=== PATIENT | female | born 1995 | race Caucasian/White ===

== ENCOUNTER → 2023-05-24 | Outpatient (CLI) | payer BC, SELFPAY ==
[2023-05-24 10:57] LABS: hCG Titer Quant., Serum 422 mIU/mL (1-3)
== END | disposition home or self-care (01) ==
PROVIDERS: Obstetrics & Gynecology; PCP Internal Medicine; Visit Provider Advanced Practice Midwife
DX: N91.2 Amenorrhea, unspecified (principal)
CPT/HCPCS: 36415; 84702

== ENCOUNTER → 2023-05-31 | Outpatient (CLI) | payer BC, SELFPAY ==
[2023-05-31 11:43] LABS: hCG Titer Quant., Serum 7393 mIU/mL (1-3)
== END | disposition home or self-care (01) ==
LOC: PAVLAB 09:40
PROVIDERS: PCP Internal Medicine; Referring Provider Obstetrics & Gynecology; Visit Provider Obstetrics & Gynecology
DX: Z34.90 Encounter for supervision of normal pregnancy, unspecified, unspecified trimester (principal); Z3A.00 Weeks of gestation of pregnancy not specified
CPT/HCPCS: 36415; 84702

== ENCOUNTER → 2023-06-24 | Outpatient (CLI) | payer BC, SELFPAY ==
[2023-06-24 13:04] LABS: Absolute Lymphocyte Count 1.58 X10^3/uL (0.83-4.51); Absolute Neutrophil Count 5.5 X10^3/uL (2.0-7.7); Basophil# 0.02 X10^3/uL; Basophil% 0.3 % (0-1); Eosinophil# 0.07 X10^3/uL; Eosinophils% 0.9 % (0-5); Hematocrit 38.4 % (37-47); Hemoglobin 12.7 g/dL (12.0-15.0); Lymphocyte # 1.58 X10^3/ul (0.83-4.51); Lymphocyte % 20.4 % (19-41); Mean Corp Hgb Conc 33.1 g/dL (32-36); Mean Corpuscular Hgb 31.8 pg (27.0-32.0); Monocyte# 0.51 X10^3/uL; Monocyte% 6.6 % (0-10); NRBC Flagged by Analyzer 0 % (0-5); Neutrophil # 5.52 X10^3/uL (2.7-7.7); Neutrophil % 71.4 % (47-70); Platelet Count 249 K/mm3 (150-450); RBC Distribution Width CV 11.7 % (11.6-14.6); RBC Distribution Width SD 41.7 fl (35.1-43.9); White Blood Count 7.7 K/mm3 (4.4-11.0)
[2023-06-24 14:48] LABS: HIV - WCH Non-Reactive (Nonreactive); Hepatitis B Surface Antigen Non-Reactive (Nonreactive); Hepatitis C Antibody Non-Reactive (Nonreactive); Rubella IgG Reactive (Nonreactive); Syphilis Antibodies Non-reactive
[2023-06-29 04:07] LABS: Chlamydia By Nucleic Acid AMP Negative (Negative); Gonococcus By Nucleic Acid AMP Negative (Negative)
[2023-06-29 17:44] LABS: HPV Reflexed? NOT INDICATED
== END | disposition home or self-care (01) ==
PROVIDERS: PCP Nurse Practitioner Family; Referring Provider Advanced Practice Midwife; Visit Provider Advanced Practice Midwife
DX: Z34.90 Encounter for supervision of normal pregnancy, unspecified, unspecified trimester (principal); Z3A.00 Weeks of gestation of pregnancy not specified
CPT/HCPCS: 36415; 85025; 86703; 86762; 86780; 86803; 86850; 86900; 86901; 87086; 87340; 87491; 87591; 88175; G0145

== ENCOUNTER → 2023-10-22 | Outpatient (CLI) | payer BC, SELFPAY ==
[2023-10-22 15:56] LABS: Absolute Lymphocyte Count 1.64 X10^3/uL (0.83-4.51); Absolute Neutrophil Count 6.8 X10^3/uL (2.0-7.7); Basophil# 0.05 X10^3/uL; Basophil% 0.5 % (0-1); Eosinophils% 2.1 % (0-5); Hematocrit 36.3 % (37-47); Hemoglobin 11.7 g/dL (12.0-15.0); Lymphocyte # 1.64 X10^3/ul (0.83-4.51); Lymphocyte % 17.5 % (19-41); Mean Corp Hgb Conc 32.2 g/dL (32-36); Mean Corpuscular Hgb 31.5 pg (27.0-32.0); Mean Corpuscular Volume 97.6 fL (81-99); Mean Platelet Vol. 10.7 fl (6.2-12.0); Monocyte# 0.63 X10^3/uL; Monocyte% 6.7 % (0-10); NRBC Flagged by Analyzer 0 % (0-5); Neutrophil # 6.77 X10^3/uL (2.7-7.7); Neutrophil % 72.2 % (47-70); Platelet Count 240 K/mm3 (150-450); RBC Distribution Width CV 12.5 % (11.6-14.6); RBC Distribution Width SD 45.1 fl (35.1-43.9); Red Blood Count 3.72 M/mm3 (4.2-5.4); White Blood Count 9.4 K/mm3 (4.4-11.0)
[2023-10-22 16:13] LABS: Glucose Challenge Gest 1H 50g 94 mg/dL (70-140)
[2023-10-22 16:42] LABS: HIV - WCH Non-Reactive (Nonreactive); Syphilis Antibodies Non-reactive
== END | disposition home or self-care (01) ==
LOC: LAB 14:18
PROVIDERS: PCP Nurse Practitioner Family; Referring Provider Nurse Practitioner Women's Health; Visit Provider Nurse Practitioner Women's Health
DX: Z13.1 Encounter for screening for diabetes mellitus (principal); Z3A.21 21 weeks gestation of pregnancy
CPT/HCPCS: 36415; 82950; 85025; 86703; 86780

== ENCOUNTER → 2023-12-07 | Outpatient (CLI) | payer BC, SELFPAY ==
--- NOTE | 2023-12-07 09:36 | US_ITS ---
HISTORY: growth. TECHNIQUE: Transabdominal pelvic ultrasound was performed. 56 images. COMPARISON: None. FINDINGS: INTRAUTERINE GESTATION(s): Single. PRESENTATION: Cephalic. HEART MOTION: 143 bpm. PLACENTA: Posterior, grade one. No placenta previa. CERVIX: Not well-visualized. AMNIOTIC FLUID INDEX (SAMSON): 12.3 cm. Maximum vertical pocket 3.6 cm. biometry- BIPARIETAL DIAMETER: 8.2 cm, corresponding to 33 weeks 0 days. HEAD CIRCUMFERENCE: 29.6 cm, corresponding to 32 weeks 5 days. ABDOMINAL CIRCUMFERENCE: 26.6 cm, corresponding to 30 weeks 5 days. FEMUR LENGTH: 6.1 cm, corresponding to 31 weeks 6 days. ESTIMATED GESTATIONAL AGE: 32 weeks 0 days. ESTIMATED DUE DATE (NOAM): 02/01/2024. ESTIMATED WEIGHT: 1783 g corresponding to 11th percentile. US/OB Limited With Biometrics IMPRESSION: Single living intrauterine with an estimated gestational age of 32 weeks 0 days. biometry as above. Electronically Signed: Monika Otoole MD at 8:39 EDT ,
== END | disposition home or self-care (01) ==
LOC: US 09:35
PROVIDERS: PCP Nurse Practitioner Family; Referring Provider Obstetrics & Gynecology; Visit Provider Obstetrics & Gynecology
DX: O26.843 Uterine size-date discrepancy, third trimester (principal)
CPT/HCPCS: 76816

== ENCOUNTER → 2023-12-10 | Outpatient (CLI) | payer BC, SELFPAY ==
--- NOTE | 2023-12-10 09:31 | US_ITS ---
INDICATION: IUGR, well EXAMINATION: Ultrasound US Biophysical Profile W/O Nonst TECHNIQUE: Transabdominal pelvic ultrasound was performed. COMPARISON: Prior study dated: 12/07/2023 LMP: Unknown. Beta-hCG: Unknown. Provided EGA: 33 weeks 2 days FINDINGS: INTRAUTERINE GESTATION(s): Single. HEART MOTION is 150 bpm. AMNIOTIC FLUID INDEX (SAMSON): 12.4 cm BIOPHYSICAL PROFILE (BPP): 12/08 -- Breathin/2. -- Movement: 2/2. -- Tone: 2/2. --SAMSON: 2/2. PRESENTATION: Cephalic PLACENTA: Posterior. There is no placenta previa or abruption. CERVIX: The cervix is not visualized. FREE FLUID: None. US/Biophysical Prof W/O Non Stres IMPRESSION: Single live intrauterine with biophysical profile 12/08. No acute abnormality. Electronically Signed: Clovis Perez MD at 11:42 EDT ,
== END | disposition home or self-care (01) ==
LOC: US 09:30
PROVIDERS: PCP Nurse Practitioner Family; Referring Provider Obstetrics & Gynecology; Visit Provider Obstetrics & Gynecology
DX: O36.5990 Maternal care for other known or suspected poor fetal growth, unspecified trimester, not applicable or unspecified (principal); O26.843 Uterine size-date discrepancy, third trimester
CPT/HCPCS: 76819

== ENCOUNTER → 2023-12-29 | Outpatient (CLI) | payer BC, SELFPAY | END | disposition home or self-care (01) | LOC: LABSPEC 15:17 | PROVIDERS: PCP Nurse Practitioner Family; Referring Provider Obstetrics & Gynecology; Visit Provider Obstetrics & Gynecology | DX: Z34.03 Encounter for supervision of normal first pregnancy, third trimester (principal) | CPT/HCPCS: 87077; 87081; 87186 ==

== ENCOUNTER → 2024-01-26 | Outpatient (CLI) | payer BC, SELFPAY ==
[2024-01-26 10:31] LABS: ROM Internal Control Test YES-OK TO RESULT pt. (Internal QC); ROM Patient Test Negative (Negative)
[2024-01-26 10:32] LABS: Record Kit Lot#, ROM+ K1660
== END | disposition home or self-care (01) ==
PROVIDERS: PCP Nurse Practitioner Family; Referring Provider Obstetrics & Gynecology; Visit Provider Obstetrics & Gynecology
DX: O26.899 Other specified pregnancy related conditions, unspecified trimester (principal); N89.8 Other specified noninflammatory disorders of vagina; Z3A.00 Weeks of gestation of pregnancy not specified; O99.891 Other specified diseases and conditions complicating pregnancy
CPT/HCPCS: 84112

== ENCOUNTER 2024-01-30 20:40 | Outpatient (CLI) | payer BC, SELFPAY ==
[2024-01-30 20:47] VITALS: BMI 31.0
[2024-01-30 20:51] VITALS: BP 128/74; PULSE 85; RESP 16; TEMP 36.4; O2SAT 97
--- NOTE | 2024-02-18 07:49 | OB.TRI.NOTE ---
HPI - General General Date of Service: 01/30/24 HPI Narrative LUCIA BOWDEN, is a 28 F who presents at 40.4 for rule out labor. having irregular contractions that are uncomfortable. denies lof/vb. has active fetus. [facility] Medical History (Updated 02/18/24 @ 07:53 by Tiffanie Mccracken CNM) Supervision of normal first Positive GBS test SAMSON (amniotic fluid index) borderline low Active labor at term SROM (spontaneous rupture of membranes) Asthma Home Medications ?Medication ?Instructions ?Recorded ?Last Taken ?Type azelaic acid 15 % topical gel 1 applic topical ONCE 06/18/23 01/30/24 History clindamycin phosphate 1 % topical 1 applic topical DAILY 06/18/23 01/30/24 History gel, once daily multivit-min no.71-iron fum 28 1 cap PO 06/18/23 01/30/24 History mg-folate no.1 1 mg-dha 300 mg capsule (PNV-[place]) Allergy/AdvReac Type Severity Reaction Status Date / Time No Known Allergies Allergy Verified 01/31/24 03:37 Family History Grandmother Cancer, Onset Age: 77 Paternal- skin cancer Grandfather Heart disease paternal Diabetes Paternal Type 2 Grandfather Heart disease Maternal Mother Hypertension High cholesterol Asthma Father Hypertension High cholesterol Surgical History [place] teeth extracted Social History adopted: No household members: spouse current occupational status: employed current occupation: [employer] current occupational exposures/hazards: No pets and animals: Yes (Avoid litterbox) pets and animals: cat(s) and dog(s) history of recent travel: Yes ([place]) out of state: Yes out of country: No sexually active: Yes Smoking Status: Never smoker alcohol intake: current alcohol intake frequency: a few times a week details: not while substance use type: does not use well-balanced diet: daily or most days caffeine: No eating out: 1-3 times/week during the past year weight has: remained stable what type of physical activity do you participate in: other details: cardio frequency: 3-4 times per week duration: 30-45 minutes/day guillermo/[employer] seatbelt use: always do you feel safe at home: Yes additional social history: [employer]- [employer] History 1 Elective abortions Hx Para 0 Spontaneous abortions Hx # Term Pregnancies Ectopic pregnancies Hx # Pregnancies Multiple births # of living children 1 Past Pregnancies Del. Date Name GA/Weeks Outcome Route Bth Weight Infant Gen Labor Lgth Anesthesia Del Locatn Provider FOB 01/31/24 Marybeth 40 live - full term Female epidural [facility] [place] Delivery Date: 01/31/24 Last Updated by: Jaz Hutchins, RN See problem list for complications, and KW IAL 40.5 girl NST FHR Rate Baby A Baseline: 135 Variability:: Moderate Accelerations:: 15 x 15 Decelerations:: None NST Reactive:: Yes FHR Category:: Category I Assessment & Plan (1) False labor: COMMENT: no change in cervical exam. plan d/c home for spontaneous labor. PLAN: Patient presents for triage evaluation secondary to rule out labor FHT: Moderate variability reactive no decelerations category I tracing [place]: irregular Contractions Assessment and plan: Reactive NST, reassuring maternal and status patient discharged to home to follow-up as needed. See problem list details for additional plan information. Charges/Coding Procedures Urinary/Genital [id number]: 63765-69 non-stress test Interp Multi Select Codes Urinary/Genital Urinary/Genital CPT Codes: 19518-10 non-stress test Interp
== END 2024-01-30 23:32 | disposition home or self-care (01) ==
LOC: WPOUT 20:42 → WP 20:46
PROVIDERS: PCP Nurse Practitioner Family; Referring Provider Registered Nurse; Visit Provider Registered Nurse
DX: O47.1 False labor at or after 37 completed weeks of gestation (principal); Z3A.40 40 weeks gestation of pregnancy; J45.909 Unspecified asthma, uncomplicated; O99.513 Diseases of the respiratory system complicating pregnancy, third trimester
CPT/HCPCS: 59050; 99221; G0378

== ENCOUNTER 2024-01-31 04:00 | Inpatient (IN) | payer BC, SELFPAY ==
[2024-01-31] VITALS (72 sets, daily range): BP systolic 106–172; BP diastolic 55–80; PULSE 68–101; RESP 16–20; TEMP 36.4–37.7; O2SAT 96–100; BMI 31.0
[2024-01-31 03:58] LABS: ROM Internal Control Test YES-OK TO RESULT pt. (Internal QC)
[2024-01-31 03:59] LABS: ROM Patient Test POSITIVE (Negative); Record Kit Lot#, ROM+ K1660
[2024-01-31] MEDS: Penicillin G Pot 5,000,000 UNITS in 0.9% Normal Saline (100mL MB+) 100 ML 150 UNITS IV (04:28)
[2024-01-31] MEDS: Lactated Ringers 1,000 ML 100 ML IV (04:34)
[2024-01-31 04:37] LABS: Absolute Lymphocyte Count 1.37 X10^3/uL (0.83-4.51); Absolute Neutrophil Count 10.9 X10^3/uL (2.0-7.7); Basophil# 0.05 X10^3/uL; Basophil% 0.4 % (0-1); Eosinophil# 0.05 X10^3/uL; Eosinophils% 0.4 % (0-5); Hemoglobin 11.9 g/dL (12.0-15.0); Lymphocyte # 1.37 X10^3/ul (0.83-4.51); Lymphocyte % 10.4 % (19-41); Mean Corp Hgb Conc 32.2 g/dL (32-36); Mean Corpuscular Hgb 29.6 pg (27.0-32.0); Mean Platelet Vol. 10.6 fl (6.2-12.0); Monocyte# 0.73 X10^3/uL; Monocyte% 5.5 % (0-10); NRBC Flagged by Analyzer 0 % (0-5); Neutrophil # 10.88 X10^3/uL (2.7-7.7); Neutrophil % 82.6 % (47-70); Platelet Count 164 K/mm3 (150-450); RBC Distribution Width CV 12.5 % (11.6-14.6); RBC Distribution Width SD 41.9 fl (35.1-43.9); Red Blood Count 4.02 M/mm3 (4.2-5.4); White Blood Count 13.2 K/mm3 (4.4-11.0)
[2024-01-31 05:13] LABS: Syphilis Antibodies Non-reactive
[2024-01-31] MEDS: Lactated Ringers 1,000 ML 999 ML IV (06:57)
--- NOTE | 2024-01-31 08:36 | HP.PCM.OB_ITS ---
HPI - General General Date of Admission: 01/31/24 Date of Service: 01/31/24 HPI Narrative LUCIA BOWDEN, is a 28 F 40.5 weeks who presents to unit in active labor and SROM. Admission planned. Maternal Data Information NOAM Calculator Estimated Delivery Date Method Current WG Current Estimate 01/26/24 LMP (Certain) 40w 5d Final NOAM: 01/26/24 Final NOAM Source: US >20 weeks Gestational age: 40.5 PFSH PFSH Medical History Asthma Home Medications ?Medication ?Instructions ?Recorded ?Last Taken ?Type azelaic acid 15 % topical gel 1 applic topical ONCE 06/18/23 01/30/24 History clindamycin phosphate 1 % topical 1 applic topical DAILY 06/18/23 01/30/24 History gel, once daily multivit-min no.71-iron fum 28 1 cap PO 06/18/23 01/30/24 History mg-folate no.1 1 mg-dha 300 mg capsule (PNV-Dahlgren) Allergy/AdvReac Type Severity Reaction Status Date / Time No Known Allergies Allergy Verified 01/31/24 03:37 Family History Grandmother Cancer, Onset Age: 77 Paternal- skin cancer Grandfather Heart disease paternal Diabetes Paternal Type 2 Grandfather Heart disease Maternal Mother Hypertension High cholesterol Asthma Father Hypertension High cholesterol Surgical History [place] teeth extracted Social History adopted: No household members: spouse current occupational status: employed current occupation: [employer] [place] [employer] current occupational exposures/hazards: No pets and animals: Yes (Avoid litterbox) pets and animals: cat(s) and dog(s) history of recent travel: Yes ([place]) out of state: Yes out of country: No sexually active: Yes Smoking Status: Never smoker alcohol intake: current alcohol intake frequency: a few times a week details: not while substance use type: does not use well-balanced diet: daily or most days caffeine: No eating out: 1-3 times/week during the past year weight has: remained stable what type of physical activity do you participate in: other details: cardio frequency: 3-4 times per week duration: 30-45 minutes/day guillermo/uatsdin: [employer] seatbelt use: always do you feel safe at home: Yes additional social history: Osvaldo- [employer] In[employer] History 1 Elective abortions Hx Para 0 Spontaneous abortions Hx # Term Pregnancies Ectopic pregnancies Hx # Pregnancies Multiple births # of living children Visit Details Expected Delivery Route/Plan Labor Preferences- CB/BF classes: encouraged labor support person: Osvaldo labor intervention preferences: [] pain management options preferred: limited intervention if possible. Ok w/epidural cut cord/dad catch: maybe : yes PP control planned: discussed discussed possible routes of delivery and associated risks: [] special requests: [] Plans Covid status: [] Flu vaccine: [] Tdap vaccine: given Rhogam: NA LARC form signed: yes movement and labor precautions reviewed. Problem list reviewed and updated with the most current plan of care details and appropriate orders placed. Relevant counseling for the gestational age provided. Continue routine care and follow up unless otherwise noted in visit notes/problem list details OB Flowsheet Initial Weight: Not Recorded Date -?-?-?-?-?-?-?-?-?-?-?-?- EGA Weight BP Urine Prot -?-?-?-?-?-?-?-?-?-?-?-?- Glucose FHR FuHt Pres Dilation -?-?-?-?-?-?-?-?-?-?-?-?- Effaced St Visit Note 06/24/23 -?-?-?-?-?-?-?-?-?-?-?-?- 9w 1d 147 lb 118/78 -?-?-?-?-?-?-?-?-?-?-?-?- 175 -?-?-?-?-?-?--?-?-?-?-?-?- kw- CRL cons wit h dates. Accepts NIPT and carrier 07/21/23 -?-?-?-?-?-?-?-?-?-?-?-?- 13w 0d Negative -?-?-?-?-?-?-?-?-?-?-?-?- Negative 165 -?-?-?-?-?-?-?-?-?-?-?-?- JV- carrier for SMA. pt's partner to get tested today. 08/20/23 -?-?-?-?-?-?-?-?-?-?-?-?- 17w 2d 150 lb 116/62 Negative -?-?-?-?-?-?-?-?-?-?-?-?- Negative 154 -?-?-?-?-?-?-?-?-?-?-?-?- LC- no vb/crampi ng. declines afp. has anatomy schedule 09/20/23 -?-?-?-?-?-?-?-?-?-?-?-?- 21w 5d 158 lb 4 oz 116/70 Nega tive -?-?-?-?-?-?-?-?-?-?-?-?- Negative 155 -?-?-?-?-?-?-?-?-?-?-?-?- -No VB, LOF. G ood FM. Denies concerns 10/22/23 -?-?-?-?-?-?-?-?-?-?-?-?- 26w 2d 163 lb 6 oz 111/63 Nega tive -?-?-?-?-?-?-?-?-?-?-?-?- Negative 147 -?-?-?-?-?-?-?-?-?-?-?-?- JV- sma for part ner was negative. JV- sma for partner was nega tive. did her 3rd trimester labs today and they are pending. no complaints. was using dog tick and flea ointment on her dog and was worried about this. ecouraged to use gloves. 12/02/23 -?-?-?-?-?-?-?-?-?-?-?-?- 32w 1d 170 lb 2 oz 114/65 Nega tive -?-?--?-?-?-?-?-?-?-?-?-?- Negative 145 29 -?-?-?-?-?-?-?-?-?-?-?-?- SM- no vb lof go od fm no reuglar ctx.growth US ordered. 12/17/23 -?-?-?-?-?-?-?-?-?-?-?-?- 34w 2d 172 lb 102/67 Negative -?-?-?-?-?-?-?-?-?-?-?-?- Negative 140 32 -?-?-?-?-?-?-?-?-?-?-?-?- SM- no vb lof go od fm no regular ctx SM- no vb lof good fm no reg ular ctx- had MFM scan and was 34 %ile overall and healthy, repeat scan with mfm in 4 weeks scheduled 12/29/23 -?-?-?-?-?-?-?-?-?-?-?-?- 36w 0d 175 lb 4 oz 114/69 Nega tive -?-?-?-?-?-?-?-?-?-?-?-?- Negative 153 34 Cephalic 1 -?-?-?-?-?-?-?-?-?-?-?-?- 50 -3 -Kashif Oleary OF. Good FM. GBS done. Growth US 01/0301/07/24 -?-?-?-?-?-?-?-?-?-?-?-?- 37w 2d 177 lb 4 oz 111/67 Nega tive -?-?-?-?-?-?-?-?-?-?-?-?- Negative 145 35.5 Cephalic 0 .5 -?-?-?-?-?-?-?-?-?-?-?-?- 50 -3 LC- no vb/ ctx/lof. good fm. gbs positive, reviewed. MFM u/s showing 24% with adequate samson 01/14/24 -?-?-?-?-?-?-?-?-?-?-?-?- 38w 2d 179 lb 121/80 Negative -?-?-?-?-?-?-?-?-?-?-?-?- Negative 155 35 Cephalic -?-?-?-?-?-?-?-?-?-?-?-?- SM- no vb lof go od fm no regualr ctx SM- no vb lof good fm no reg ualr ctx bedside SAMSON 9.8 cm 01/21/24 -?-?-?-?-?-?-?-?-?-?-?-?- 39w 2d 178 lb 2 oz 120/72 Nega tive -?-?-?-?-?-?-?-?-?-?-?-?- Negative 138 37 Cephalic -?-?-?-?-?-?-?-?-?-?-?-?- JV- no lof, vagi nal bleeding, or dec fm. declines pelvic exam SAMSON is 14 today 01/26/24 -?-?-?-?-?-?-?-?-?-?-?-?- 40w 0d 183 lb 123/80 Negative -?-?-?-?-?-?-?-?-?-?-?-?- Negative 140 36 Cephalic 1 .5 -?-?-?-?-?-?-?-?-?-?-?-?- 50 -2 SM- no vb lof good fm no regular ctx discussed rom plus, repeat fluid level wednesday, bedside samson 6.8 today NST FHR Rate Baby A Baseline: 140 Variability:: Moderate Accelerations:: 15 x 15 Decelerations:: None NST Reactive:: Yes FHR Category:: Category I Uterine Activity:: 2-3 ROS Constitutional Constitutional: Denies change in weight, fatigue, fever(s), headache(s), poor appetite or weakness Eyes Eyes: Denies blurry vision, change in vision, floaters, seeing flashes or spots in vision ENT HEENT: Denies dizziness, headache(s), loss taste/smell or sore throat Cardiovascular Cardiovascular: Denies chest pain, dizziness, dyspnea, irregular heart rhythm, lightheadedness, palpitations or rapid heart rate Respiratory/Chest Respiratory/Chest: Denies change in mental status, chest tightness, cough, dyspnea or breast pain Gastrointestinal Gastrointestinal: Denies anorexia, chewing difficulty, constipation, diarrhea or weight changes Genitourinary Genitourinary: Denies difficulty urinating, dysuria, flank pain, genital pain, urinary frequency or urinary urgency Musculoskeletal Musculoskeletal: Denies back pain, difficulty walking, extremity pain, joint pain, muscle cramps or muscle weakness Integumentary Integumentary: Denies lesions or unusual bruising Neurologic Neurologic: Denies abnormal movements, abnormal speech, dizziness, numbness, seizure-like activity, syncope or weakness Psychiatric Psychiatric: Denies behavioral changes, change in appetite, confusion, depression, homicidal ideation, suicidal ideation or suicidal thoughts Endocrine Endocrinology: Denies excessive sweating, polydipsia or polyuria Hematologic/Lymphatic Hematologic/Lymphatic: Denies anemia Allergic/Immunologic Allergic/Immunologic: Denies itchy eyes, lip swelling, throat swelling, tongue swelling or wheezing Vital Signs Vital Signs Vital Signs: 01/31/24 03:23 01/31/24 03:23 01/31/24 03:23 Temperature Temperature Source Pulse Rate 75 Respiratory Rate Blood Pressure 132/77 H BP Systolic 132 BP Diastolic 77 Pulse Ox 96 01/31/24 03:23 01/31/24 03:23 01/31/24 03:23 Temperature 97.6 F L Temperature Source Temporal Pulse Rate Respiratory Rate 18 Blood Pressure BP Systolic BP Diastolic Pulse Ox 01/31/24 04:50 01/31/24 04:50 01/31/24 04:50 Temperature Temperature Source Temporal Pulse Rate 83 Respiratory Rate Blood Pressure 120/75 BP Systolic 120 BP Diastolic 75 Pulse Ox 01/31/24 04:50 01/31/24 04:50 01/31/24 05:32 Temperature 97.9 F Temperature Source Pulse Rate Respiratory Rate 16 Blood Pressure 120/74 BP Systolic 120 BP Diastolic 74 Pulse Ox 01/31/24 05:32 01/31/24 05:32 01/31/24 05:32 Temperature Temperature Source Temporal Pulse Rate 76 Respiratory Rate 16 Blood Pressure BP Systolic BP Diastolic Pulse Ox 01/31/24 05:32 01/31/24 06:12 01/31/24 06:12 Temperature 98.3 F Temperature Source Temporal Pulse Rate Respiratory Rate 16 Blood Pressure BP Systolic BP Diastolic Pulse Ox 01/31/24 06:12 01/31/24 06:13 01/31/24 06:13 Temperature 98.3 F Temperature Source Pulse Rate 77 Respiratory Rate Blood Pressure 128/72 H BP Systolic 128 BP Diastolic 72 Pulse Ox 01/31/24 07:32 01/31/24 07:32 01/31/24 07:32 Temperature 98.1 F Temperature Source Temporal Pulse Rate Respiratory Rate 18 Blood Pressure BP Systolic BP Diastolic Pulse Ox 01/31/24 07:33 01/31/24 07:33 01/31/24 07:42 Temperature Temperature Source Pulse Rate 78 73 Respiratory Rate Blood Pressure 121/74 H BP Systolic 121 BP Diastolic 74 Pulse Ox 01/31/24 07:42 01/31/24 07:47 01/31/24 07:47 Temperature Temperature Source Pulse Rate 86 Respiratory Rate Blood Pressure BP Systolic BP Diastolic Pulse Ox 99 100 01/31/24 07:48 01/31/24 07:48 01/31/24 07:50 Temperature Temperature Source Pulse Rate 89 Respiratory Rate 18 Blood Pressure 130/80 H BP Systolic 130 BP Diastolic 80 Pulse Ox 01/31/24 07:52 01/31/24 07:52 01/31/24 07:53 Temperature Temperature Source Pulse Rate 82 Respiratory Rate Blood Pressure 172/76 H BP Systolic 172 BP Diastolic 76 Pulse Ox 98 01/31/24 07:53 01/31/24 07:54 01/31/24 07:55 Temperature Temperature Source Pulse Rate 81 Respiratory Rate 16 Blood Pressure 118/66 BP Systolic 118 BP Diastolic 66 Pulse Ox 01/31/24 07:55 01/31/24 07:57 01/31/24 07:57 Temperature Temperature Source Pulse Rate 86 95 Respiratory Rate Blood Pressure BP Systolic BP Diastolic Pulse Ox 99 01/31/24 07:58 01/31/24 07:58 01/31/24 08:00 Temperature Temperature Source Pulse Rate 88 Respiratory Rate 16 Blood Pressure 108/63 BP Systolic 108 BP Diastolic 63 Pulse Ox 01/31/24 08:02 01/31/24 08:02 01/31/24 08:03 Temperature Temperature Source Pulse Rate 83 Respiratory Rate Blood Pressure 113/55 L BP Systolic 113 BP Diastolic 55 Pulse Ox 98 01/31/24 08:03 01/31/24 08:05 01/31/24 08:07 Temperature Temperature Source Pulse Rate 88 79 Respiratory Rate 18 Blood Pressure BP Systolic BP Diastolic Pulse Ox 01/31/24 08:07 01/31/24 08:08 01/31/24 08:08 Temperature Temperature Source Pulse Rate 76 Respiratory Rate Blood Pressure 110/55 L BP Systolic 110 BP Diastolic 55 Pulse Ox 98 01/31/24 08:10 01/31/24 08:12 01/31/24 08:12 Temperature Temperature Source Pulse Rate 81 Respiratory Rate 16 Blood Pressure 109/62 BP Systolic 109 BP Diastolic 62 Pulse Ox 01/31/24 08:12 01/31/24 08:15 01/31/24 08:17 Temperature Temperature Source Pulse Rate Respiratory Rate 16 Blood Pressure 112/56 L BP Systolic 112 BP Diastolic 56 Pulse Ox 99 01/31/24 08:17 01/31/24 08:17 01/31/24 08:22 Temperature Temperature Source Pulse Rate 72 Respiratory Rate Blood Pressure 116/57 L BP Systolic 116 BP Diastolic 57 Pulse Ox 99 01/31/24 08:22 01/31/24 08:22 01/31/24 08:22 Temperature Temperature Source Pulse Rate 68 71 Respiratory Rate Blood Pressure BP Systolic BP Diastolic Pulse Ox 100 01/31/24 08:27 01/31/24 08:27 01/31/24 08:27 Temperature Temperature Source Pulse Rate 75 Respiratory Rate Blood Pressure 115/57 L BP Systolic 115 BP Diastolic 57 Pulse Ox 100 Weight Weight: 181 lb Body Mass Index (BMI) 31.0 Physical Exam Const alert, oriented x3 and no apparent distress General Appearance: cooperative Orientation / Consciousness: awake HEENT normocephalic Neck full ROM Lymph Lymphatic: no lymphadenopathy noted Chest inspection of chest normal Resp normal respiratory effort and normal air movement Effort and Inspection: able to speak in complete sentences and symmetric chest movement GI soft to palpation and non-tender Inspection: gravid Palpation: soft; Negative for tender external exam normal Back/Spine normal to inspection Extremity normal to inspection and full ROM Skin no rashes or lesions noted Psych mental status grossly normal Appearance: grossly normal Speech: normal speech Labs Labs Labs: Blood Type O POSITIVE Antibody Screen NEGATIVE Hct 37.0 % (37-47) Hgb 11.9 g/dL (12.0-15.0) L Obstetrics Ultrasound Syphilis Total Ab Non-reactive Rubella IgG Antibody Reactive (Nonreactive) Hep Bs Antigen Non-Reactive (Nonreactive) Hepatitis C Antibody Non-Reactive (Nonreactive) Chlamydia DNA (MALINDA) Negative (Negative) N.gonorrhoeae DNA (MALINDA) Negative (Negative) HIV 1&2 Antibody Non-Reactive (Nonreactive) Glucose 1 Hr 50 gm 94 mg/dL (70-140) Assessment & Plan (1) SAMSON (amniotic fluid index) borderline low: COMMENT: repeat samson wednesday and appointment wednesday, iol 41 or sooner (2) Positive GBS test: COMMENT: pcn in labor. (3) Carrier of spinal muscular atrophy: COMMENT: FOB negative, neg. 04/13 (4) Supervision of normal first : QUALIFIERS: Trimester: third trimester Qualified Code(s): Z34.03 - Encounter for supervision of normal first , third trimester COMMENT: PRR, , NOAM 01/26/24, girl, Marybeth Osvaldo (5) : QUALIFIERS: Weeks of gestation: 40 weeks Qualified Code(s): Z3A.40 - 40 weeks gestation of COMMENT: anatomy nl, discussed genetic & carrier testing, NIPT low risk, carrier neg. spinal muscular atrophy(FOB neg) (6) Active labor at term: PLAN: Patient presents IAL, plan expectant management for , pitocin/AROM PRN if needed. Pain management: plans epidural. GBS positive plan IV PCN. Management of any complications: none I have reviewed the [facility] and made any clinically relevant updates. Dr Avitia aware of assessment and plan and agrees with admission (7) SROM (spontaneous rupture of membranes): Charges/Coding Multi Select Codes Urinary/Genital Urinary/Genital CPT Codes: No Charge
[2024-01-31] MEDS: Penicillin G 3,000,000 Units 50 ML 100 UNITS IV (08:42)
[2024-01-31] MEDS: fentaNYL-bupivacaine (epidural) 100 ML BAG EPIDURAL (08:42)
[2024-01-31] MEDS: Lactated Ringers 1,000 ML 200 ML IV (10:19)
--- NOTE | 2024-01-31 10:49 | PN_ITS ---
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
[2024-01-31] MEDS: Oxytocin 15 Units/NS 250ml 15 UNITS/250 ML IV.SOLN 2 UNITS IV (13:05)
[2024-01-31] MEDS: Oxytocin 15 Units/NS 250ml 15 UNITS/250 ML IV.SOLN 83 UNITS IV (14:05)
--- NOTE | 2024-01-31 14:12 | EX.PCM.OBRPT ---
Assessment & Plan (1) Vaginal delivery: COMMENT: KW IAL SROM 40.6 girl (2) SROM (spontaneous rupture of membranes): (3) Active labor at term: (4) SAMSON (amniotic fluid index) borderline low: COMMENT: repeat samson wednesday and appointment wednesday, iol 41 or sooner (5) Positive GBS test: COMMENT: pcn in labor. (6) Carrier of spinal muscular atrophy: COMMENT: FOB negative, neg. 04/13 (7) Supervision of normal first : QUALIFIERS: Trimester: third trimester Qualified Code(s): Z34.03 - Encounter for supervision of normal first , third trimester COMMENT: PRR, , NOAM 01/26/24, girl, Marybeth Osvaldo (8) : QUALIFIERS: Weeks of gestation: 40 weeks Qualified Code(s): Z3A.40 - 40 weeks gestation of COMMENT: anatomy nl, discussed genetic & carrier testing, NIPT low risk, carrier neg. spinal muscular atrophy(FOB neg) Maternal Data Information NOAM Calculator Estimated Delivery Date Method Current WG Current Estimate 01/26/24 LMP (Certain) 40w 5d Final NOAM: 01/31/24 Final NOAM Source: US >20 weeks Gestational age: 40.5 Vaginal Delivery Maternal Presentation Maternal Presentation: Active Labor and Spontaneous Rupture of Membranes Maternal Presentation: Progressed well to 10cm dilated and made steady progress with effective maternal pushing. for 40 minutes and patient requesting small episitomy to be done to assist with delivery due to maternal exhaustion. Delivered the head in JOSE F presentation. The head was delivered atraumatically and no nuchal cord was identified. The anterior and posterior shoulders delivered without complication followed by the rest of the infant and the infant was placed on the maternal abdomen. Delayed cord clamping was employed for approximately 3 minutes. Cord was clamped and cut and gentle traction was applied to the cord and the placenta delivered spontaneously. Immediately following, it was noted to be intact with a 3 vessel cord. IV Pitocin started and vaginal bleeding stable. The perineum and vagina were inspected and noted to have a second degree laceration which was repaired with 3-0 Vicryl in the usual fashion. EBL was 300cc. Apgars 8/9. Patient and infant tolerated delivery well. Bonding skin to skin during recovery. Dr Avitia notified of vaginal delivery and orders reviewed. Physician agrees with current plan of care. Operative Information Date of Procedure: 01/31/24 Pre-Operative Diagnosis: See AP comments Post-Operative Diagnosis: Same Surgery / Procedure Performed: Spontaneous Vaginal Delivery lute packer or applier #1: Kelly Gerber Type of Anesthesia: Epidural Estimated Blood Loss: 300 Time of Delivery: 13:28 Findings Presentation: Vertex Amniotic Membrane Rupture Type: Spontaneous Amniotic Fluid Description: Clear Placental Delivery Description: Spontaneous Placenta Disposition: [facility] Cord Vessel Description: 3 Vessels Cord Entanglement: None Infant A Gender: Female (1 minute): 8 (5 minute): 9 Delayed Cord Clamping: Yes Post Vaginal Delivery Medications Given After Delivery: IV Pitocin Episiotomy Description: 1st degree Laceration: 2nd degree Complication Complications: None Multi Select Codes Urinary/Genital Urinary/Genital CPT Codes: 15428 Vaginal Delivery [facility]
--- NOTE | 2024-01-31 14:17 | DCINST_ITS ---
Discharge Instructions Diet Discharge Diet: No restrictions Activity Discharge Activity: Return to Normal Activity May resume sexual activity in: 6-8 weeks Dressing / Incision Call your doctor if you observe: Fever of 101 or Higher, Coldness, Increased Pain, Numbness or Tingling, Change in Color, Inability to urinate, Inability to have a bowel movement, Using more than 1 pad per hour, Shortness of breath, Dizziness, Fainting spells, Swelling in the ankles, Chest pain, Increased palpitations (irregular heartbeat), Calf discomfort and Uncontrolled pain Follow Up Care Please Follow Up With: Kelly Gerber CNM When: Please call the office to schedule your follow up appointment in 6 weeks. If you had high blood pressure please call to schedule an appointment in 2 weeks. Test Results: Test results from this visit will be discussed in further detail at your follow- up appointment, if applicable. Discharge Plan Admission Admit Date/Time: 01/31/24 04:00 Attending Provider: Kelly Gerber Primary Care Provider: Geri Zamora Discharge Orders/Prescriptions Prescriptions: No Action PNV-Petal 28-1-300 mg capsule 1 cap PO clindamycin phosphate 1 % gel, once daily 1 applic topical DAILY azelaic acid 15 % gel 1 applic topical ONCE Referrals / Follow Up: Geri Zamora, [employer] [Primary Care Provider] -
[2024-02-01 04:30] VITALS: BP 113/71; PULSE 70; RESP 16
--- NOTE | 2024-02-01 07:39 | PCM.PN.OB ---
Subjective Subjective Patient doing well without complaints. Tolerating PO. Ambulating and voiding without difficulty. Feeding well. Denies chest pain, shortness of breath, calf pain/swelling, fevers, chills, lightheadedness. Objective Data Objective Data Vital Signs: Vital Signs Temp Pulse Resp BP Pulse Ox O2 Del Method 98.6 F 70 16 113/71 99 Room Air 01/31/24 19:52 02/01/24 04:30 02/01/24 04:30 02/01/24 04:30 01/31/24 15:37 02/01/24 04:30 Oxygen Delivery Method Room Air Weight: 181 lb Body Mass Index (BMI) 31.0 Intake & Output: Intake and Output for Last 24 Hours 01/30/24 01/31/24 02/01/24 23:59 23:59 23:59 Intake Total 2872.61 / 2872.61 Output Total 2300 / 2300 Balance 572.61 / 572.61 Lab / Micro Data 01/31/24 04:25 ROS Constitutional Constitutional: Denies chills, fatigue, fever(s), poor appetite or weakness Eyes Eyes: Denies blurry vision, change in vision, seeing flashes or spots in vision ENT HEENT: Denies dizziness, headache(s), loss taste/smell or sore throat Cardiovascular Cardiovascular: Denies chest pain, dizziness, dyspnea, irregular heart rhythm, palpitations or rapid heart rate Respiratory/Chest Respiratory/Chest: Denies chest tightness, cough, dyspnea or breast pain Gastrointestinal Gastrointestinal: Denies abdominal pain, constipation or vomiting Genitourinary Genitourinary: Denies dysuria or flank pain Musculoskeletal Musculoskeletal: Denies difficulty walking, joint pain, limited range of motion or numbness Neurologic Neurologic: Denies abnormal movements, abnormal speech, dizziness, numbness, seizure-like activity or syncope Psychiatric Psychiatric: Denies anxiety, behavioral changes, change in appetite, confusion, depression or suicidal thoughts Physical Exam Const alert, oriented x3 and no apparent distress General Appearance: cooperative and comfortable Resp normal respiratory effort Cardio regular rate GI normal to inspection, nondistended, normoactive bowel sounds GI Narrative: uterus is firm below umbilicus Palpation: soft Back/Spine no CVA tenderness and thoraco-lumbar ROM normal Extremity normal to inspection, no clubbing, cyanosis or edema, no calf tenderness and no pedal edema Psych mental status grossly normal, thought process normal, cooperative, affect normal, speech normal, activity/motor behavior normal, denies homicidal ideation and denies suicidal ideation Assessment & Plan (1) Vaginal delivery: COMMENT: KW IAL SROM 40.6 girl (2) SROM (spontaneous rupture of membranes): PLAN: Plan s/p PPD # 1 1. routine post delivery care 2. breast feeding- support given 3. rh positive 4. rubella immune 5. plan dc to home later tonight or tomorrow am.
[2024-02-01 08:26] VITALS: BP 101/80; PULSE 75; RESP 16; TEMP 37.1
[2024-02-01 11:54] VITALS: BP 112/75; PULSE 96; RESP 16; TEMP 36.8
[2024-02-01 15:38] VITALS: BP 121/81; PULSE 84; RESP 16; TEMP 37
== END 2024-02-01 16:50 | disposition home or self-care (01) | DRG 807 ==
LOC: WPOUT 04:02 → WP 04:02
PROVIDERS: Registered Nurse; Admitting Provider Advanced Practice Midwife; PCP Nurse Practitioner Family; Referring Provider Advanced Practice Midwife; Visit Provider Advanced Practice Midwife
DX: O41.03X0 Oligohydramnios, third trimester, not applicable or unspecified (principal); Z37.0 Single live birth; J45.909 Unspecified asthma, uncomplicated; O99.52 Diseases of the respiratory system complicating childbirth; O48.0 Post-term pregnancy; O70.1 Second degree perineal laceration during delivery; O76 Abnormality in fetal heart rate and rhythm complicating labor and delivery; O75.81 Maternal exhaustion complicating labor and delivery; O99.820 Streptococcus B carrier state complicating pregnancy; Z3A.40 40 weeks gestation of pregnancy
CPT/HCPCS: 84112; 85025; 86780; 86850; 86900; 86901; 99221; J7120; G0378